=== PATIENT | female | born 1950 | race Caucasian/White ===

== ENCOUNTER 2021-07-25 01:07 | Outpatient (CLI) | payer MEDICARE, SELFPAY ==
--- NOTE | 2021-07-25 06:45 | DI.US_ITS ---
Exam(s) US THYROID EXAM: US THYROID CLINICAL HISTORY: assess for change in thyroid nodule,e04.1. TECHNIQUE: Ultrasound thyroid performed using standard protocol. COMPARISON: No exams were available for comparison FINDINGS: Both thyroid lobes exhibit normal size. There are nodules seen in both thyroid lobes as well as a single nodule in the isthmus. RIGHT THYROID LOBE: Measures 1.8 cm AP x 1.4 cm wide x 5 cm craniocaudal Two nodules are detailed, as below. Nodule #1 Size: Measures 2 cm wide by 9 millimeter AP by 1.7 cm craniocaudal. Composition: Solid-2 points Echogenicity: Isoechoic-1 point Shape: Wider than taller in the transverse plane-0 points Margin: Smooth- 0 points Echogenic Foci: None - 0 points Total Points for this nodule: 3 ACR Ti-Rads Category: TR3 This nodule can be followed, given that it measures less than 2.5 cm. Nodule #2 this nodule is more inferiorly located in the right lobe Size: Measures 1.6 cm x 0.6 cm x 1.5 cm cm Composition: Mixed cystic-solid- 1 point Echogenicity: Isoechoic-1 point Shape: Wider than taller- 0 points Margin: Smooth-0 points Echogenic Foci: None-0 points Total points for this nodule: 2 ACR Ti-Rads Category: TR2 This nodule can be followed. ISTHMUS: There is a significant solid nodule in the isthmus which is wider than taller in the transve rse plane. This nodule measures 1 cm wide by 0.4 cm AP Composition: Solid-2 points Echogenicity: Hypoechoic-2 points Shape: There than taller in the transverse plane-0 points Margin: Smooth-0 points Echogenic foci: None-0 points Total points for this nodule = 4 points= TR4. This nodule can be followed given that it measures less than 1.5 cm. LEFT THYROID LOBE: Measures 0.8 cm AP x 1.3 wide x 4.0 cm craniocaudal There are 2 detailed nodules in left lobe, as described below. Nodule #1 this is the more superior of the 2 findings in the left lobe. Size: Measures 1.7 x 0.5 x 1.1 cm Composition: Solid-2 points Echogenicity: Hyperechoic-1 points Shape: Wider than taller-0 points Margin: Smooth-0 points Echogenic Foci: None-0 points Total points for this nodule: 3 ACR Ti-Rads Category: 3 This nodule can be followed. Nodule #2 this nodule is located inferiorly in the left lobe. Size: Measures 0.5 x 0.5 x 0.6 cm Composition: Solid-2 point Echogenicity: Isoechoic-1 point Shape: Wider than taller in the transverse plane-0 points Margin: Smooth-0 points Echogenic Foci: This nodule does contain echogenic punctate foci-3 points Total Points for this nodule: 6 ACR Ti-Rads Category: 4 This nodule can be followed given that it measures less than 1.5 cm. LYMPH NODES: There is no significant adenopathy. IMPRESSION: 1. Nodules in both lobes as well as the isthmus home as described individually above. These nodules can be followed. Recommend repeat ultrasound in 1 year, with earlier imaging if patient feels that b een increase in size. 2. There is no significant lymphadenopathy. DATA REPOSITORY:
== END 2021-07-25 01:27 ==
PROVIDERS: PCP Family Medicine; Visit Provider Otolaryngology
DX: E04.2 Nontoxic multinodular goiter (principal)
CPT/HCPCS: 76536

== ENCOUNTER 2022-06-13 01:48 | Outpatient (CLI) | payer MEDICARE, SELFPAY ==
--- NOTE | 2022-06-13 06:45 | DI.US_ITS ---
Exam(s) US THYROID EXAM: US THYROID CLINICAL HISTORY: Assess for change,MULTINODULAR GOITER, E04.2. TECHNIQUE: Ultrasound thyroid performed using standard protocol. COMPARISON: US US THYROID from 07/25/2021 FINDINGS: ISTHMUS: 2.8 mm RIGHT LOBE: Size: 4.0 x 1.7 x 1.8 cm Echogenicity: Normal. Vascularity: Normal. Nodules: There is a 2.1 x 1.1 x 1.5 cm solid isoechoic nodule in the superior pole. No echogenic foc i are seen. This is consistent with a TI rads level 3 nodule. Due to its size, follow-up is recomme nded. There is a 1.4 x 0.7 x 1.2 cm solid isoechoic nodule in the inferior pole. No echogenic foci are seen. This is consistent with a TI rads level 3 nodule. Due to its size, no follow-up is recomm ended. No other nodules are seen in the right lobe that would require follow-up. LEFT LOBE: Size: 3.9 x 0.8 x 1.3 cm Echogenicity: Normal. Vascularity: Normal. Nodules: There is a 1.4 x 0.6 x 0.8 cm solid isoechoic nodule. No echogenic foci are seen. It is co nsistent with a TI rads level 3 nodule. Due to its size, no follow-up is recommended. There is a 0. 5 x 0.3 x 0.4 cm solid hypoechoic nodule in the inferior pole of the left lobe. No echogenic foci ar e seen. It is consistent with a TI rads level 4 nodule. Due to its size, no follow-up is recommende d. OTHER FINDINGS: None. IMPRESSION: Multinodular thyroid gland as described above. Please see the above discussion for complete details. DATA REPOSITORY:
== END 2022-06-13 02:08 ==
PROVIDERS: PCP Family Medicine; Visit Provider Otolaryngology
DX: E04.2 Nontoxic multinodular goiter (principal)
CPT/HCPCS: 76536